=== PATIENT | female | born 1955 | race Caucasian/White ===

== ENCOUNTER 2017-08-10 20:42 | Emergency (ER) | payer SELFPAY ==
[2017-08-10 21:09] VITALS: BP 108/70; PULSE 72; RESP 16; TEMP 98.5; O2SAT 97
--- NOTE | 2017-08-10 21:32 | ED PDOC ---
HPI: Wound Care - HPI Time Seen by Provider: 08/10/17 21:10 Chief Complaint (Nursing): Abnormal Skin Integrity Chief Complaint (Provider): Left Hand Laceration History Per: Patient Exam Limitations: no limitations Onset/Duration Of Symptoms: Days (x2) Current Symptoms Are (Timing): Still Present Additional Complaint(s): 61 y/o female with no significant PMHx presenting for wound evaluation. Patient reports that yesterday at 11am she cut her left 2nd digit with a knife. She states that today due to persistent bleeding at work they sent her home. She confirms localized pain. She denies fever, drainage, or other extremity pain. Tetanus UTD. PMD: Dr. Longoria Past Medical History Reviewed: Historical Data, Nursing Documentation, Vital Signs Vital Signs: Last Vital Signs Temp 98.5 F 08/10/17 21:07 Pulse 72 08/10/17 21:07 Resp 16 08/10/17 21:07 BP 108/70 08/10/17 21:07 Pulse Ox 97 08/10/17 21:07 - Medical History PMH: No Chronic Diseases - Surgical History Surgical History: No Surg Hx - Family History Family History: States: Unknown Family Hx - Social History Current smoker - smoking cessation education provided: No Alcohol: None Drugs: Denies - Immunization History Hx Tetanus Toxoid Vaccination: Yes - Home Medications Home Medications: Ambulatory Orders Medication Instructions Recorded Bacitracin Ointment [Bacitracin] 1 applic TOP BID #1 tube 08/10/17 - Allergies Allergies/Adverse Reactions: Allergies Allergy/AdvReac Type Severity Reaction Status Date / Time No Known Allergies Allergy Verified 08/10/17 21:06 Review of Systems ROS Statement: Except As Marked, All Systems Reviewed And Found Negative Constitutional: Negative for: Fever Skin: Positive for: Lesions (left 2nd digit laceration) Physical Exam - Reviewed Nursing Documentation Reviewed: Yes Vital Signs Reviewed: Yes - Physical Exam Comments: GENERAL APPEARANCE: Patient is awake, alert, oriented x 3, in no acute distress. SKIN: Warm, dry; (-) cyanosis. CHEST AND RESPIRATORY: (-) rales, (-) rhonchi, (-) wheezes; breath sounds equal bilaterally. HEART AND CARDIOVASCULAR: (-) irregularity; (-) murmur, (-) gallop. LEFT HAND: (+) 1.5 cm U shaped laceration to the proximal radial aspect of the left 2nd digit, (-) active bleeding, (-) erythema, (-) tenderness. Full ROM of all digits, capillary refill intact, NV intact, sensation intact. NEURO AND PSYCH: Mental status as above. - ECG O2 Sat by Pulse Oximetry: 97 (RA) Pulse Ox Interpretation: Normal Medical Decision Making Medical Decision Makin:15 Impression: Finger laceration Plan: -Wound irrigated with saline and Bacitracin. Telfa and clean dressing applied. -Due to injury being more than 24 hours old patient advised sutures could not be placed at this time. Patient educated on wound care and advised to follow up with PMD. 2149 On re-evaluation, patient offers no additional complaints. On exam, patient remains AAOx3, in no acute distress. On exam, neck is supple, lungs CTA, cardiac RRR, neuro exam shows no focal findings. VSS, stable for discharge. Diagnostic results d/w the patient in great detail. Dx of finger laceration d/w the patient. Educated on wound care. Based on history, exam and diagnostic results plan will be for discharge and outpatient follow up. Advised to follow up with primary care physician in 1-2 days without fail. Advised to take medication as prescribed. Return to the emergency room at any time for any new or worsening symptoms. Patient states she fully agrees with and understands discharge instructions. States that she agrees with the plan and disposition. Verbalized and repeated discharge instructions and plan. I have given the patient opportunity to ask any additional questions. Scribe Attestation: Documented by Greg Bowman, acting as a scribe for Sheree Lovell PA-C. Provider Scribe Attestation: All medical record entries made by the scribe were at my direction and personally dictated by me. I have reviewed the chart and agree that the record accurately reflects my personal performance of the history, physical exam, medical decision making, and the department course for this patient. I have also personally directed, reviewed, and agree with the discharge instructions and disposition. Disposition - Clinical Impression Clinical Impression: Finger laceration, Visit for wound check - Patient ED Disposition Is Patient to be Admitted: No Counseled Patient/Family Regarding: Diagnosis, Need For Followup, Rx Given - Disposition Referrals: [facility] [Outside] Disposition: Routine/Home Disposition Time: 21:51 Condition: STABLE Additional Instructions: FOLLOW UP WITH PMD/CLINIC IN 1-2 DAYS FOR WOUND CHECK. RETURN TO ED WITH ANY NEW OR WORSENING SYMPTOMS. CLEAN WOUND TWICE DAILY WITH WARM WATER AND SOAP. APPLY ANTIBIOTIC OINTMENT NEEDED. Prescriptions: Bacitracin Ointment [Bacitracin] 1 applic TOP BID #1 tube Instructions: Common Finger Injuries, Wound Care Forms: [facility] (Kyrgyz) Print Language: SINHALA - POA Present On Arrival: Falls Or Trauma (cut with knife)
[2017-08-10] MEDS ORDERED: Bacitracin OINT 15GM TOP STA (21:50)
== END 2017-08-10 22:36 | disposition home or self-care (01) ==
LOC: H.ER 20:42
DX: S61.221A Laceration with foreign body of left index finger without damage to nail, initial encounter (principal); W26.0XXA Contact with knife, initial encounter; Y92.89 Other specified places as the place of occurrence of the external cause